=== PATIENT | female | born 1950 | race Caucasian/White ===

== ENCOUNTER 2019-05-27 22:43 | Emergency (ER) | payer MEDICARE, BC ==
[~2019-05-27] VITALS: Ht 157.5 cm; Wt 72.6 kg
[2019-05-27] MEDS ORDERED: TETANUS/DIPHTHERIA TOX ADULT 0.5 ML SYR IM ONE (22:45)
--- OUTSIDE RECORDS SUMMARY | 2019-05-27 22:45 | XMS REPORT | Summary of Care ---
Author Author ARINA Hensley, SPENCER Organization Unknown Address Unknown Phone Unavailable Care Team Providers Care Lead Neurodiagnostic Technologist Name Role Phone ARINA Hensley, SPENCER Unavailable Unavailable MICHELLE TAYLOR, JM Unavailable Unavailable NAWAF TAYLOR, SADIQ Hannah Unavailable Unavailable ARINA CHAMORRO, SPENCER Unavailable Unavailable Unavailable Unavailable Functional Status Name Dates Details Functional status health issues are not documented Status: Name Dates Details Cognitive status health issues are not documented Status: Problems Name Dates Details Other internal derangements of right knee (717.89, M23.8X1) Status: Active Edema (782.3, R60.9) Status: Active Leg pain (729.5, M79.606) Status: Active Pes anserine bursitis (726.61, M70.50) Status: Active Acute pain of right knee (719.46, M25.561) Status: Active Pes anserinus tendinitis of right lower extremity (726.61, M76.891) Status: Active Loose body of right knee (717.6, M23.41) Status: Active Chondromalacia of right knee (717.7, 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) Status: Active Medications Name Dates Details [place] Thyroid 120 MG Oral Tablet Active B-12 Compliance Injection 1000 MCG/ML Injection Kit * Refills: 0 Active Biotin TABS * Refills: 0 Active Vitamin C Oral Tablet Chewable * Refills: 0 Active Potassium TABS * Refills: 0 Active Zinc CAPS * Refills: 0 Active Lysine TABS * Refills: 0 Active Allergies and Adverse Reactions Name Dates Details No Known Drug Allergies (Allergy) Status: Active Past Medical History Name Dates Details History of arthritis (V13.4, Z87.39) Status: Resolved History of back pain (V13.59, Z87.39) Status: Resolved History of hemorrhoids (V13.89, Z87.19) Status: Resolved History of thyroid disease (V12.29, Z86.39) Status: Resolved History of venous thrombosis (V12.51, Z86.718) Status: Resolved Procedures Procedure Dates Details History of Foot surgery Completed History of Leg surgery Completed History of Hysterectomy Completed History of Thyroid surgery Completed History of section Completed History of Lower back surgery Completed Immunization Name Dates Details Immunizations not documented Family History Name Dates Details Family history of diabetes mellitus (V18.0, Z83.3) Comments: Family History Status: Active Family history of Heart trouble (429.9, I51.9) Comments: Family History Status: Active Family history of hypertension (V17.49, Z82.49) Comments: Family History Status: Active Family history of cerebrovascular accident (CVA) (V17.1, Z82.3) Comments: Family History Status: Active Social History Name Dates Details Unknown if ever smoked Vital Signs Date Test Result Details [id number]-[id number]:40 Weight 179 lb Status: Results Date Description Value Details Results not documented Plan of Care Name Dates Details Planned Observations Planned Goals not documented Planned Encounters Appointment; SPENCER SANTA M.D. On: 20-Jun-2019 11:45 Interventions Provided Plan* Patient Education/Instructions: * Patient education and reassurance was provided for better understanding of the diagnosis and treatment plan. An opportunity to ask questions was provided. * Patient/caregiver was instructed to contact the office or emergency room for worsening pain, swelling, and/or any concerns. Understanding was acknowledged. * Instructions to keep site iced and elevated were explained in detail. Instructions to contact the office or emergency room for worsening pain, swelling, and/or any concerns were provided. Understanding was acknowledged. * Instruction to rest and refrain from vigorous or strenuous activity was given. Understanding was acknowledged. * A gradual return to normal physical activities as tolerated was recommended. Understanding was acknowledged. * MRI images/reports were reviewed. Findings were discussed in detail. * Significant time was spent educating and counseling the patient. * Orders: * Physical Therapy * Follow Up: * Return to the clinic in 6-8 weeks or as needed. Instructions Name Dates Details Instructions not documented Encounters Appointment; YULY WYMAN M.D. Encounter Diagnosis: Problem not documented On: 03-Jan-2019 11:30 Appointment; SPENCER SANTA M.D. Encounter Diagnosis: Problem not documented On: 22-Feb-2019 10:00 Appointment; SPENCER SANTA M.D. Encounter Diagnosis: Problem not documented On: 26-Apr-2019 10:30
--- OUTSIDE RECORDS SUMMARY | 2019-05-27 22:45 | XMS REPORT | Summary of Care ---
Author Author Cuca Beasley M.A. Unknown Address Unknown Phone Unavailable Care Team Providers Care Environmental Compliance Inspector Name Role Phone ARINA Hnesley, SPENCER Unavailable Unavailable MICHELLE TAYLOR, JM Unavailable [...] Pes anserine bursitis (726.61, M70.50) Status: Active Pes anserinus tendinitis of right lower extremity (726.61, M76.891) Status: Active Acute pain of right knee (719.46, M25.561) Status: Active Medications Name Dates Details [facility] Thyroid 120 MG Oral Tablet Active B-12 [...] smoked Vital Signs Date Test Result Details 81-Oov-417345:40 Weight 179 lb Status: Results Date Description Value Details Results not documented Plan of Care Name Dates Details Planned Observations Planned Goals not documented Instructions Name Dates Details Instructions not documented Encounters Appointment; YULY WYMAN M.D. Encounter Diagnosis: Problem not documented On: 03-Jan-2019 11:30 Appointment; SPENCER SANTA M.D. Encounter Diagnosis: Problem not documented On: 22-Feb-2019 10:00 Appointment; SPENCER SANTA M.D. Encounter Diagnosis: Problem not documented On: 26-Apr-2019 10:30
--- OUTSIDE RECORDS SUMMARY | 2019-05-27 22:45 | XMS REPORT ---
Author Author [facility] Address Unknown Phone Unavailable Care Team Providers Care Optimization Analyst Name Role Phone Unavailable Unavailable Payers Payer Name Policy Type Policy Number Effective Date Expiration Date Problems This patient has no known problems. Allergies, Adverse Reactions, Alerts Allergy Name Allergy Type Status Severity Reaction(s) Onset Date Inactive Date Treating Clinician Comments hydromorphone DA Active U 2019-05-18 00:00:00 hydrocodone DA Active MO 2019-05-17 00:00:00 hydrocodone DA Active MO 2017-02-09 00:00:00 Medications This patient has no known medications. Results Test Description Test Time Test Comments Text Results Atomic Results Result Comments - XR FLUORO FOR SPINE INJ 2019-05-18 11:07:00 Patient Name: OCTAVIA GRAJEDA Unit No: [id number] EXAMS: CPT CODE: [id number] XR FLUORO FOR SPINE INJ 99325 LUMBAR TRANSFORAMINAL INJECTION REFERRING PHYSICIAN: PREOPERATIVE DIAGNOSIS: Degenerative Lumbar Disc Disease. POSTOPERATIVE DIAGNOSIS: Lumbar radiculopathy PROCEDURES PERFORMED 1. Fluoroscopically guided needle localization of the bilateral L4, bilateral L5, right L3 spinal nerve/nerves with transforaminal epidural steroid injection/injections. 2. Transforaminal epidurogram/epidurograms at bilateral L4, bilateral L5, right L3. FINDINGS: Poor filling all. Concordant provocation right L5 leg, right L3 anterior thigh, left L5 leg. Pain relief-100%. ANTIBIOTIC: Cefazolin ESTIMATED BLOOD LOSS: Minimal ANESTHESIA: (TIVA )Total intravenous anesthetic (patient intolerant to sedatives and hypnotics) COMPLICATIONS: None DETAILS OF PROCEDURE: After obtaining stable vital signs, informed consent and IV access, with no known contraindications to proceeding, the patient was taken to the fluoroscopy suite and placed in a prone position with all extremities padded and appropriate monitors placed. A sterile prep and drape was performed over the lumbosacral spine. Using fluoroscopic visualization at each level the insertion site was marked for a paraverte bral approach to the foramen. Using standard technique, a 25 gauge needle was advanced to the base of the pedicle. In AP view, final positioning was obtained outside the 6 on the clock position on the pedicle. Then, 1 ml of Isovue-300 contrast was injected to produce the epidurograms. No paresthesias were elicited with needle insertion or injection and there were no signs of intravascular or intrathecal uptake. Then, with 1 ml of 4% lidocaine and 10 mg of triamcinolone was injected incrementally with frequent negative aspirations. There were no signs of intravascular or intrathecal uptake. Each subsequent level was done using the same technique and medications. The patient's vital signs remained stable. The patient was taken to the PACU in good condition. at 1107 Reported and signed by: Osiel Clay M.D. [facility] NAME: JOSE GRAJEDAGrace AC [address] [place] [address] PHYS: Osiel Damon MD [place], [place] [address] : 1950 AGE: 69 SEX: F LOC: STAR PHONE #: [phone] EXAM DATE: 05/18/2019 STATUS: REG [facility] [place] FAX #: [phone] RAD #: D/C DT PAGE 1 Signed Report (CONTINUED) Patient Name: OCTAVIA GRAJEDA Unit No: [id number] EXAMS: CPT CODE: [id number] XR FLUORO FOR SPINE INJ 18163 <Continued> CC: Osiel Clay MD Technologist: EFREN CANALES RT(R) Transcribed D/ (1107) t.UVD [facility] NAME: OCTAVIA GRAJEDA [address]OR[address] [facility] PHYS: Osiel aDmon MD [place], [place] [address] : 1950 AGE: 69 SEX: F LOC: STAR PHONE #: [phone] EXAM DATE: 05/18/2019 STATUS: REG [facility] [place] FAX #: [phone] RAD #: D/C DT PAGE 2 Signed Report Patient Name: OCTAVIA GRAJEDA Unit No: [id number] EXAMS: CPT CODE: [id number] XR FLUORO FOR SPINE INJ 29352 <Continued> Orig Print D/T: S: 05/18/2019 (1110) [facility] NAME: OCTAVIA GRAJEDA [address] [facility] PHYS: DOCUD - Doctor,Osiel Kraft MD [place], [place] [address] : 1950 AGE: 69 SEX: F LOC: STAR PHONE #: [phone] EXAM DATE: 05/18/2019 STATUS: [facility] [place] FAX #: [phone] RAD #: D/C DT PAGE 3 Signed Report
--- NOTE | 2019-05-27 23:55 | Diagnostic Imaging Report ---
EXAMINATION: Head CT without contrast. HISTORY:Status post fall. COMPARISON:None. TECHNIQUE: Multidetector axial images were obtained from the foramen magnum to the vertex without contrast. The images were reconstructed using brain and bone algorithms. Thin section brain images were reformatted into coronal and sagittal planes. Dose modulation, iterative reconstruction, and/or weight based adjustment of the mA/kV was utilized to reduce the radiation dose to as low as reasonably achievable. Intravenous contrast: None IMAGE QUALITY: Acceptable. FINDINGS: Skull/scalp: No lytic or blastic. lesions. No surgical changes. Parenchyma: Nonspecific few, scattered supratentorial white matter hypodensity are likely related to small vessel ischemic changes. No acute hemorrhage, mass or acute major vascular territorial infarct. Arteries: No density suggestive of thrombosis. Dural sinuses: No abnormal density suggestive of thrombosis. Ventricles: No hydrocephalus or displacement. Extra-axial spaces: No abnormal density. Brain volume: Normal for age. Craniocervical junction: No mass, Chiari malformation, or basilar invagination. Sella: No mass. Paranasal/mastoid sinuses: Imaged portions unremarkable. IMPRESSION: No acute intracranial abnormality. Signed by: Dr. Jane Ortega M.D. on 05/27/2019 11:53 PM
--- NOTE | 2019-05-27 23:59 | Diagnostic Imaging Report ---
Right complete knee. CPT CODE: 91045. INDICATION: Fall COMPARISON: None FINDINGS: No evidence of acute fracture or dislocation. The visualized joint spaces of the knee are preserved. 3 mm bone island in the medial tibial plateau. Traction enthesophyte from the upper pole of the patella. No joint effusion. IMPRESSION: No acute traumatic pathology. Signed by: Dr. Kennedi Garcia MD on 05/27/2019 11:57 PM
[2019-05-28] MEDS ORDERED: HYDROCODONE/APAP 5MG-325MG TAB PO ONE
[2019-05-28] MEDS ORDERED: ONDANSETRON HCL 4 MG ORAL DISINTEGRATING TAB PO ONE
--- NOTE | 2019-05-28 00:03 | Diagnostic Imaging Report ---
Hand Complete CPT code: 11439 Indication: Fall Technique: Three views of the right hand obtained Comparison: None. Findings: Distal radius and ulna appear intact. Carpal bones appear generally well aligned. The digits are intact. There is narrowing of the proximal and distal IP joints of digits 2-5 and the IP joint of the first digit with small osteophytes. IMPRESSION: No evidence for displaced fracture or current dislocation of the hand. Signed by: Dr. Kennedi Garcia MD on 05/28/2019 12:00 AM
--- NOTE | 2019-05-28 00:03 | Diagnostic Imaging Report ---
History: Status post fall. Comparison studies: None Technique: Axial images were obtained through the cervical region.. Coronal and sagittal images reconstructed from the axial data. Dose modulation, iterative reconstruction, and/or weight based adjustment of the mA/kV was utilized to reduce the radiation dose to as low as reasonably achievable. Intravenous contrast: None Findings: Fractures: None. Soft tissue injuries: None. Atlantoaxial articulation: Intact. Alignment: Loss of normal cervical lordosis is either positional or due to muscle spasm. No scoliosis. Cervicomedullary junction: No abnormalities. The foramen magnum is patent. Soft tissues: Nonspecific dense calcifications in left lower neck, is partially visualized may represent vascular calcifications. Vertebrae: No fractures, infection or neoplasm. Degenerative changes: C3-C4: Moderate degenerative disc disease. Mild bilateral foraminal stenosis due to uncovertebral arthrosis. C4-C5: Moderate degenerative disc disease. Mild right and moderate left foraminal stenosis due to uncovertebral arthrosis. C5-C6: Moderate to severe degenerative disc disease. Posterior disc osteophyte complex results in mild canal stenosis. Mild bilateral foraminal stenosis due to uncovertebral arthrosis C6-C7: Mild bilateral foraminal stenosis due to uncovertebral arthrosis.. IMPRESSION: 1. No acute cervical spine fracture or dislocation. Loss of normal cervical lordosis is either positional or due to muscle spasm. 2. Ligament, spinal cord and or vascular abnormalities cannot be excluded on the basis of this examination. 3. Cervical spondylosis as detailed above. Signed by: Dr. Jane Ortega M.D. on 05/28/2019 12:00 AM
--- NOTE | 2019-05-28 00:08 | Diagnostic Imaging Report ---
History:Fall. Comparison studies: None Technique: Axial images were obtained through the maxillofacial region. Coronal and sagittal images reconstructed from the axial data. Dose modulation, iterative reconstruction, and/or weight based adjustment of the mA/kV was utilized to reduce the radiation dose to as low as reasonably achievable. Intravenous contrast: None Findings: Soft tissues: Mild perinasal soft tissue swelling. No soft tissue emphysema. Few punctate superficial radiopaque densities in left perinasal soft tissue may represent debris or foreign body. Bones: Acute displaced fracture of bilateral nasal bones. Acute mildly displaced fracture of bony nasal septum with rightward deviation. Orbits: Globes: Intact Extra or intraconal abnormalities: None. Paranasal sinuses: Clear IMPRESSION: 1. Acute displaced fracture of bilateral nasal bones and nasal septum. 2. Mild perinasal soft tissue swelling and few, punctate left perinasal superficial debris/foreign body. Signed by: Dr. Jane Ortega M.D. on 05/28/2019 12:05 AM
[2019-05-28] MEDS ORDERED: ACETAMINOPHEN 325 MG TAB ONE (00:22)
[2019-05-28] MEDS ORDERED: ACETAMINOPHEN 325 MG TAB PO ONE (00:30)
== END 2019-05-28 01:00 | disposition home or self-care (01) ==
LOC: ER 22:43
DX: S00.83XA Contusion of other part of head, initial encounter (principal); S02.2XXA Fracture of nasal bones, initial encounter for closed fracture; M79.641 Pain in right hand; M25.561 Pain in right knee; W17.89XA Other fall from one level to another, initial encounter; Y93.01 Activity, walking, marching and hiking; Y92.008 Other place in unspecified non-institutional (private) residence as the place of occurrence of the external cause; E03.9 Hypothyroidism, unspecified; M43.26 Fusion of spine, lumbar region
CPT/HCPCS: 70450; 70486; 72125; 90471; 90714; 99283; Q0162